=== PATIENT | female | born 1990 | race Caucasian/White ===

== ENCOUNTER 2017-03-19 11:49 | Day surgery (SDC) | payer OTHER ==
[2017-03-17 16:01] LABS: BASOPHILS % (AUTO) 0.2 % (0-1); EOSINOPHILS # (AUTO) 0.2 X10'3 (0-0.9); EOSINOPHILS % (AUTO) 2.3 % (0-6); LYMPHOCYTES # (AUTO) 1.5 X10'3 (1.1-4.8); LYMPHOCYTES % (AUTO) 16.6 % (21-51); MEAN CORPUSCULAR HEMOGLOBIN 28.5 PG (27.0-31.0); MEAN CORPUSCULAR HGB CONC 33.9 % (33.0-36.5); MEAN PLATELET VOLUME 8.9 FL (7.4-10.4); MONOCYTES # (AUTO) 0.8 X10'3 (0-0.9); MONOCYTES % (AUTO) 9.5 % (2-12); NEUTROPHILS # (AUTO) 6.4 X10'3 (1.8-7.7); NEUTROPHILS % (AUTO) 71.4 % (42-75); PRE OP HEMATOCRIT 40.2 % (35.0-45.0); PRE OP HEMOGLOBIN 13.6 g/dL (12.0-16.0); PRE OP PLATELET COUNT 326 X10'3 (140-440); RED BLOOD COUNT 4.79 X10'6 (4.20-5.60); RED CELL DISTRIBUTION WIDTH 14.2 % (11.5-14.5)
[2017-03-17 16:11] LABS: ALBUMIN 3.1 G/DL (3.4-5.0); ANION GAP 7 (8-16); BLOOD UREA NITROGEN 5 MG/DL (7-18); BUN/CREATININE RATIO 5.7 (6.6-38.0); CALCIUM 8.8 MG/DL (8.5-10.1); CHLORIDE 102 MMOL/L (99-107); CREATININE 0.87 MG/DL (0.40-0.90); GLUCOSE 89 MG/DL (70-104); HCG SERUM QL NEGATIVE; POTASSIUM 3.5 MMOL/L (3.5-5.1); SODIUM 139 MMOL/L (135-145); TOTAL CARBON DIOXIDE 29.6 MMOL/L (24-32); eGFR 77 ML/MIN
[~2017-03-19] VITALS: Ht 167.6 cm; Wt 136.1 kg
[2017-03-19] VITALS (11 sets, daily range): BP systolic 102–144; BP diastolic 65–96
[~2017-03-19 11:49] MED LIST: BUSP10TA11 PO; LEVO50TA8 PO; LORA-512 PO; famotidine 20mg tablet PO ONE; ringers solution, lacted 1,000 ML IV SCH
[2017-03-19] MEDS ORDERED: LIDOcaine 1% (10mg/ml) 2ml vial ONE (12:22)
[2017-03-19] MEDS ORDERED: ceFAZolin 2gm in dextrose, iso 100 ML IV ONE (13:25)
[2017-03-19] MEDS ORDERED: ceFAZolin inj. 3,000 MG in normal saline 100ml IV soln 100 ML IV ONE (13:30)
[2017-03-19] MEDS ORDERED: ceFAZolin 1000mg inj ONE (14:34)
[2017-03-19] MEDS ORDERED: BUPIVAcaine 0.5% inj/PF 30 ML ONE (14:34)
[2017-03-19] MEDS ORDERED: LIDOcaine 0.5% (5mg/ml) 50ml vial ONE (14:47)
[2017-03-19] MEDS ORDERED: midazolam 2 mg/2 ml injection ONE ×2 (14:49)
[2017-03-19] MEDS ORDERED: fentaNYL/PF 50MCG/1 ML 2ML syringe ONE ×2 (14:49→15:12)
[2017-03-19] MEDS ORDERED: propofol inj 20 ML IV ONE (15:37)
== END 2017-03-19 17:15 | disposition home or self-care (01) ==
LOC: PAS 11:49
PROVIDERS: ATTEND Orthopaedic Surgery
DX: M65.311 Trigger thumb, right thumb (principal); M67.441 Ganglion, right hand; E03.9 Hypothyroidism, unspecified; G43.909 Migraine, unspecified, not intractable, without status migrainosus
CPT/HCPCS: 26055; 26160; 36415; 80048; 84703; 85025; A4615; A6449; J0690; J2001; J2250; J2704; J3010; J3490; J7120; A7000; J7030